=== PATIENT | male | born 1945 | race Caucasian/White ===

== ENCOUNTER 2024-10-22 10:14 | Day surgery (SDC) | payer MEDICARE ==
[2024-10-22] MEDS ORDERED: EPINEPHrine 1 MG/ML VIAL ONE (10:16)
[2024-10-22] MEDS ORDERED: Bupivacaine 0.25% HCL 30 ML VIAL ONE (10:17)
[2024-10-22] MEDS ORDERED: Lidocaine 2% PF 5 ML VIAL ONE (10:17)
[2024-10-22] MEDS ORDERED: fentaNYL PF 100 MCG/2 ML SYRINGE ONE (10:32)
[2024-10-22] MEDS ORDERED: Lidocaine 1% PF 5 ML VIAL ONE (10:32)
[2024-10-22] MEDS ORDERED: PROPOFOL 20 ML ONE (10:32)
[2024-10-22] MEDS ORDERED: Rocuronium Bromide 10 MG/ML (10ML VIAL) ONE (10:32)
[2024-10-22] MEDS ORDERED: CEFAZOLIN 2 GM VIAL ONE (11:54)
[2024-10-22] MEDS ORDERED: Dexamethasone 20 MG/5 ML VIAL ONE (12:37)
[2024-10-22] MEDS ORDERED: Ondansetron PF 4 MG/2 ML Vial ONE (12:37)
[2024-10-22] MEDS ORDERED: Heparin 5,000 UNITS/ML VIAL ONE (12:43)
[2024-10-22] MEDS ORDERED: ePHEDrine Sulfate 50 MG/10 ML VIAL ONE (12:54)
[2024-10-22] MEDS ORDERED: SUGAMMADEX SODIUM 200 MG/2 ML VIAL ONE (13:55)
[2024-10-22] MEDS ORDERED: fentaNYL 50 mcg/mL 1 mL Vial ONE ×2 (14:34→15:12)
[2024-10-22] MEDS ORDERED: Acetaminophen/Codeine 30-300mg Tablet ONE (15:48)
== END 2024-10-22 17:13 | disposition home or self-care (01) ==
LOC: SDC 10:14
PROVIDERS: ATTEND Surgery
PROC: 0JH60WZ Insertion of Totally Implantable Vascular Access Device into Chest Subcutaneous Tissue and Fascia, Open Approach (ICD-10-PCS; principal; 2024-10-22)
PROC: 0DC60ZZ Extirpation of Matter from Stomach, Open Approach (ICD-10-PCS; 2024-10-22)
DX: C32.1 Malignant neoplasm of supraglottis (principal); E43 Unspecified severe protein-calorie malnutrition; E11.9 Type 2 diabetes mellitus without complications; I11.9 Hypertensive heart disease without heart failure; J44.9 Chronic obstructive pulmonary disease, unspecified; G47.30 Sleep apnea, unspecified; Z79.899 Other long term (current) drug therapy; Z79.4 Long term (current) use of insulin; F17.210 Nicotine dependence, cigarettes, uncomplicated; Z88.8 Allergy status to other drugs, medicaments and biological substances; Z88.1 Allergy status to other antibiotic agents; Z88.6 Allergy status to analgesic agent
CPT/HCPCS: 36561; 43653; 71045; 82962; B4087; C1788; J0665; J1100; J1644; J2405; J2704; J3010; 36416; J0171; J1642

== ENCOUNTER 2025-09-23 10:28 | Outpatient (CLI) | payer MEDICARE | END 2025-09-23 10:29 | disposition home or self-care (01) | LOC: RAD 10:28 | PROVIDERS: ATTEND Otolaryngology | DX: I69.091 Dysphagia following nontraumatic subarachnoid hemorrhage (principal); R13.19 Other dysphagia; K22.9 Disease of esophagus, unspecified | CPT/HCPCS: 74230 ==